=== PATIENT | female | born 1955 | race Caucasian/White ===

== ENCOUNTER → 2017-02-07 | Outpatient (CLI) | payer OTHER ==
[~2017-02-07] MED LIST: ALPR-385 PO; ANSHCS PR; CRAN500C2 PO; CYAN500T13 PO; ESCI1TAB9 PO; FERR325T5 PO; GLIM1TAB2 PO; LISI-461 PO; LPT/20 PO; OMEP20CA9 PO; POTA10TA79 PO; TRC145 PO
--- NOTE | 2017-02-07 12:38 | MAMMOGRAPHY REPORT ---
BILATERAL DIGITAL SCREENING MAMMOGRAM TOMOSYNTHESIS WITH CAD: 02/07/2017 CLINICAL HISTORY: Routine screening. TECHNIQUE: Breast tomosynthesis in addition to standard 2D mammography was performed. Current study was also evaluated with a Computer Aided Detection (CAD) system. COMPARISON: Comparison is made to exams dated: 02/06/2016 mammogram, 02/03/2015 mammogram, 02/01/2014 m ammogram, 11/25/2012 mammogram, 11/16/2011 mammogram, and 11/13/2010 mammogram - [facility]ter. BREAST COMPOSITION: There are scattered areas of fibroglandular density in both breasts. FINDINGS: No suspicious masses, calcifications, or areas of architectural distortion are noted in ei ther breast. There has been no significant interval change compared to prior exams. IMPRESSION: ACR BI-RADS CATEGORY 1: NEGATIVE There is no mammographic evidence of malignancy. A 1 year screening mammogram is recommended. The pa tient will receive written notification of the results. Approximately 10% of breast cancers are not detected with mammography. A negative mammographic report should not delay biopsy if a clinically suggestive mass is present. Madhavi Thayer M.D. ah/:02/07/2017 08:00:12 Global Process Owner: Hansel BARR(Erlin)(M), [facility] letter sent: Normal 1/2 BI-RADS Code: ACR BI-RADS Category 1: Negative
== END | disposition home or self-care (01) ==
LOC: C.MAMM 07:35
PROVIDERS: ATTEND Internal Medicine
DX: Z12.31 Encounter for screening mammogram for malignant neoplasm of breast (principal)

== ENCOUNTER → 2017-04-08 | Outpatient (CLI) | payer OTHER ==
[2017-04-08 09:59] LABS: ESTIMATED AVERAGE GLUCOSE 140 mg/dl; HA1C FLAG Normal (Normal)
[2017-04-08 10:18] LABS: BLOOD UREA NITROGEN 19 mg/dl (7-18); BUN/CREATININE RATIO 17.2 (10-20); CARBON DIOXIDE 27 mmol/L (21-32); CHLORIDE 102 mmol/L (98-107); CREATININE 1.08 mg/dl (0.60-1.20); GLUCOSE 119 mg/dl (70-99); SODIUM 138 mmol/L (136-145)
[2017-04-08 10:24] LABS: ALB/GLOB RATIO 1.1 (0.9-2); ALKALINE PHOSPHATASE 47 U/L (45-117); ALT/SGPT 21 U/L (12-78); AST/SGOT 13 U/L (15-37); CHOLESTEROL 132 mg/dl (0-200); CHOLESTEROL/HDL RATIO 4.1; HDL CHOLESTEROL 32 mg/dl; LDL CHOLESTEROL CALCULATED 45 mg/dl; PHOSPHORUS 3.1 mg/dl (2.5-4.9); TRIGLYCERIDES 277 mg/dl (0-150); VERY LOW DENSITY LIPOPROT CALC 55 mg/dl
== END | disposition home or self-care (01) ==
LOC: C.LAB 06:38
PROVIDERS: ATTEND Internal Medicine
DX: E11.9 Type 2 diabetes mellitus without complications (principal); E78.5 Hyperlipidemia, unspecified; I10 Essential (primary) hypertension

== ENCOUNTER → 2017-05-22 | Outpatient (CLI) | payer OTHER ==
[~2017-05-22] MED LIST changes: +ASPI81TA28 PO; +ATOR-24 PO; +ESCI1TAB10 PO; +GLC/500 PO; +GLIM2TAB2 PO; -LPT/20 PO; +LPT20 PO; +NUTRTAB40 PO; +OMEG10007 PO
[2017-05-22 09:57] LABS: BLOOD UREA NITROGEN 21 mg/dl (7-18); CREATININE 1.32 mg/dl (0.60-1.20)
== END | disposition home or self-care (01) ==
LOC: C.LAB 06:39
PROVIDERS: ATTEND Physician Assistant
DX: H90.3 Sensorineural hearing loss, bilateral (principal)

== ENCOUNTER → 2017-05-24 | Outpatient (CLI) | payer OTHER ==
[~2017-05-24] MED LIST changes: +GADAVIST IV PRN
--- NOTE | 2017-05-24 18:12 | DIAGNOSTIC IMAGING REPORT ---
BRAIN COMBO FOR IAC CLINICAL HISTORY: Left greater than right asymmetric sensorineural hearing loss. COMPARISON STUDY: Head CT June 27, 2009. TECHNIQUE: Utilizing a 1.5 Isis magnet, multiplanar, multi echo imaging of the brain was performed pre and postcontrast administration within 10 imaging through the internal auditory canals. Injection of 8.5 cc of Gadavist IV was uneventful. FINDINGS: There are no foci of restricted diffusion to suggest acute infarct. No acute intracranial hemorrhage, midline shift or mass effect is present. Brain volume is normal for age. Ventricular system is normal. Basilar cisterns are patent. There are no extra-axial collections. Flow-voids for the major intracranial vessels are present. There is no mass or abnormal enhancement within the bilateral internal auditory canals. There is no fluid within the mastoid air cells. Semicircular canals are intact. Extensive white matter T2 hyperintense foci are noted. This corresponds to white matter hypodensity shown on head CT of June 2009. Orbits are unremarkable. Sinuses are clear. No suspicious calvarial lesions are identified. IMPRESSION: 1. No acute intracranial findings. 2. No abnormalities within the internal auditory canals. 3. Extensive white matter T2 hyperintense foci which are nonspecific but likely reflect small vessel disease. Electronically signed by: Johnathon Jarvis M.D. 05/24/2017 6:10 PM Dictated Date/Time: 05/24/2017 6:05 PM
== END | disposition home or self-care (01) ==
LOC: C.MRI 16:47
PROVIDERS: ATTEND Physician Assistant
DX: H90.3 Sensorineural hearing loss, bilateral (principal)

== ENCOUNTER 2018-01-14 08:19 | Emergency (ER) | payer OTHER ==
[~2018-01-14] VITALS: Ht 160 cm; Wt 89.6 kg
[~2018-01-14 08:19] MED LIST changes: -ASPI81TA28 PO; -ATOR-24 PO; -ESCI1TAB10 PO; -GADAVIST IV PRN; -GLC/500 PO; -GLIM2TAB2 PO; -NUTRTAB40 PO; -OMEG10007 PO
[2018-01-14 08:26] VITALS: TEMP 36.9; Ht 160 cm; Wt 89.6 kg
--- NOTE | 2018-01-14 08:54 | DIAGNOSTIC IMAGING REPORT ---
R HAND MIN 3 VIEWS ROUTINE CLINICAL HISTORY: R hand crush injury trauma COMPARISON: None. DISCUSSION: Generalized degenerative change of the osseous structures throughout. No well-defined acute bony abnormality. No evidence for fracture or dislocation. Mild soft tissue edema or sulcal to the distal aspect of the metacarpals. IMPRESSION: 1. No acute bony abnormality. 2. Soft tissue edema. 3. Degenerative change. The above report was generated using voice recognition software. It may contain grammatical, syntax or spelling errors. Electronically signed by: Jamel Vera M.D. 01/14/2018 8:53 AM Dictated Date/Time: 01/14/2018 8:52 AM
[2018-01-14] MEDS ORDERED: NUTRTAB40 PO (09:36)
[2018-01-14] MEDS ORDERED: ASPI81TA28 PO (09:36)
[2018-01-14] MEDS ORDERED: OMEG10007 PO (09:36)
[2018-01-14] MEDS ORDERED: GLIM2TAB2 PO (09:36)
[2018-01-14] MEDS ORDERED: ATOR-24 PO (09:36)
[2018-01-14] MEDS ORDERED: ESCI1TAB10 PO (09:36)
[2018-01-14] MEDS ORDERED: GLC/500 PO (09:36)
--- NOTE | 2018-01-14 10:20 | EMERGENCY ROOM VISIT NOTE ---
History First contact with patient: 08:31 Chief Complaint: HAND PAIN/INJURY Stated Complaint: RIGHT WRIST INJURY History of Present Illness The patient is a 62 year old female, [employer] employee who presents to the Emergency Room with complaints of an injury to her right hand. The patient reports that she was removing gallardo from a refrigerator storage unit when the cart pinched her hand. The patient reports immediate developing bruise on the back of the hand, as well as pain across the knuckles. She denies any paresthesias or numbness of the hand or fingers. The patient is right-hand dominant, and rates her discomfort a 4 out of 10. Review of Systems 10 system review was performed and was negative except for pertinent positives and negatives as indicated in history of present illness Past Medical/Surgical History Medical Problems: (1) CKD (chronic kidney disease) stage 3, GFR 30-59 ml/min (2) Diabetes (3) Dyslipidemia (4) HTN (hypertension) (5) Internal hemorrhoids (6) Panic disorder Surgical Problems: (1) History of arthroscopy of knee (2) History of cholecystectomy (3) History of hysterectomy Family History Diabetes mellitus Hypertension Social History Smoking Status: Never Smoker Alcohol Use: none Drug Use: none Marital Status: single Occupation Status: employed Current/Historical Medications Scheduled Alprazolam (Xanax), 1 MG PO QAM Aspirin (Aspirin Ec), 81 MG PO QAM Atorvastatin (Lipitor), 40 MG PO HS Cranberry (Vaccinium Macrocarp (Cranberry), 1 CAP PO DAILY Escitalopram Oxalate (Lexapro), 20 MG PO HS Fenofibrate (Fenofibrate), 145 MG PO QAM Fish Oil ([place]utland-3), 1 CAP PO DAILY Glimepiride (Glimepiride), 2 MG PO QAM Lisinopril (Lisinopril), 10 MG PO DAILY Metformin Hcl (Glucophage), 500 MG PO BIDM Nutritional Supplements (Estroven), 1 TAB PO DAILY Omeprazole (Prilosec), 20 MG PO DAILY Potassium Chloride Microencaps (Potassium Chloride Cr), 10 MEQ PO DAILY Physical Exam Vital Signs Date Time Temp Pulse Resp B/P (MAP) Pulse Ox O2 Delivery O2 Flow Rate FiO2 01/14/18 08:26 36.9 72 16 160/69 97 Room Air Physical Exam CONSTITUTIONAL: Healthy and well nourished. Alert and oriented X 3 with positive affect. HEENT: Normocephalic, atraumatic. Pupils equal, round and reactive. NECK: Full active range of motion without discomfort. MUSCULOSKELETAL: Examination of the right hand shows a size dorsal hematoma. She has mildly worsened discomfort with flexion and extension of the fingers. The patient has no tenderness to palpation of the phalanges or wrist region. Capillary refill is less than 2 seconds. INTEGUMENTARY: No rash or other significant dermatologic conditions noted. NEUROLOGIC: Right hand and fingers are sensory intact. Medical Decision & Procedures ER Provider Diagnostic Interpretation: My interpretation of right hand x-rays does not show any acute fractures or dislocations. Radiologist report is as follows: R HAND MIN 3 VIEWS ROUTINE CLINICAL HISTORY: R hand crush injury trauma COMPARISON: None. DISCUSSION: Generalized degenerative change of the osseous structures throughout. No well-defined acute bony abnormality. No evidence for fracture or dislocation. Mild soft tissue edema or sulcal to the distal aspect of the metacarpals. IMPRESSION: 1. No acute bony abnormality. ED Course Patient history and physical exam were performed. Nurse's notes were reviewed. Vital signs were reviewed. The patient has an ice pack with her. She refused any analgesics. X-rays of the right hand were normal. The patient was provided another ice pack, and encouraged to intermittently apply ice and elevate the hand for swelling. She was given instructions for range of motion exercises of the fingers to prevent stiffness. Ibuprofen and Tylenol as needed for additional pain relief. She was encouraged to follow-up with Employee Health as needed for further pain management. The patient was happy with plan of care, voiced understanding of all discharge instructions, and rated her discomfort a 3 out of 10 at the time of discharge. Medical Decision Medication Reconcilliation Current Medication List: was personally reviewed by oh Blood Pressure Screening Patient's blood pressure: Normal blood pressure Impression Primary Impression: Traumatic hematoma of right hand Additional Impression: Work related injury Departure Information Referrals Jessica Hollingsworth M.D. (PCP) Patient Instructions My [facility] Problem Qualifiers Primary Impression: Traumatic hematoma of right hand Encounter type: initial encounter Qualified Codes: S60.221A - Contusion of right hand, initial encounter
[2018-01-14 10:32] VITALS: BP 149/81; PULSE 59; O2SAT 96
== END 2018-01-14 10:32 | disposition home or self-care (01) ==
LOC: C.EDB 08:19
DX: S60.221A Contusion of right hand, initial encounter (principal); W23.0XXA Caught, crushed, jammed, or pinched between moving objects, initial encounter; Y99.0 Civilian activity done for income or pay; I12.9 Hypertensive chronic kidney disease with stage 1 through stage 4 chronic kidney disease, or unspecified chronic kidney disease; E11.22 Type 2 diabetes mellitus with diabetic chronic kidney disease; N18.3 Chronic kidney disease, stage 3 (moderate); E78.5 Hyperlipidemia, unspecified; F41.0 Panic disorder [episodic paroxysmal anxiety]; Z79.82 Long term (current) use of aspirin; Z79.84 Long term (current) use of oral hypoglycemic drugs; Z79.899 Other long term (current) drug therapy

== ENCOUNTER 2021-12-18 07:13 | Inpatient (IN) ==
--- NOTE | 2021-11-29 11:23 | PAT Medication Instructions ---
Medication Instructions Date of Service November 29, 2021 Home Medications alprazolam 1 mg tablet 1 mg PO QAM aspirin 81 mg tablet,delayed release 81 mg PO QAM atorvastatin 40 mg tablet 40 mg PO HS escitalopram oxalate 20 mg tablet 20 mg PO HS fenofibrate nanocrystallized 145 mg tablet 145 mg PO QAM glimepiride 4 mg tablet 4 mg PO QAM linagliptin 5 mg tablet (Tradjenta) 5 mg PO HS lisinopril 10 mg tablet 10 mg PO QAM omega 4-tsv-euf-fish oil 1,000 mg (120 mg-180 mg) capsule (Fish Oil) 1 cap PO HS omeprazole 20 mg tablet,delayed release 20 mg PO QAM potassium chloride 10 mEq tablet,extended release 10 meq PO HS soy isoflavone-black cohosh root-magnolia bark 155 mg capsule (Estroven) 1 cap PO HS cholecalciferol (vitamin D3) 25 mcg (1,000 unit) tablet 25 mcg PO HS cyanocobalamin (vitamin B-12) 500 mcg tablet (Vitamin B-12) 500 mcg PO HS gabapentin 300 mg tablet 300 mg PO UD metformin 1,000 mg tablet 1,000 mg PO BID multivit with wdifawxa-vqhi-YI-lutein 8 mg iron-400 mcg-300 mcg tablet (Centrum Silver Women) 1 tab PO QAM Continue as directed gabapentin 300 mg tablet 300 mg PO UD ASK your prescriber and surgeon aspirin 81 mg tablet,delayed release 81 mg PO QAM STOP taking 2 weeks before surgery omega 1-nss-lpe-fish oil 1,000 mg (120 mg-180 mg) capsule (Fish Oil) 1 cap PO HS soy isoflavone-black cohosh root-magnolia bark 155 mg capsule (Estroven) 1 cap PO HS STOP taking 48 hours before surgery fenofibrate nanocrystallized 145 mg tablet 145 mg PO QAM DO NOT take the morning of surgery glimepiride 4 mg tablet 4 mg PO QAM lisinopril 10 mg tablet 10 mg PO QAM metformin 1,000 mg tablet 1,000 mg PO BID multivit with hovoocqc-bffy-DP-lutein 8 mg iron-400 mcg-300 mcg tablet (Centrum Silver Women) 1 tab PO QAM Take morning of surgery With a small sip of water, OTHERWISE NOTHING TO EAT OR DRINK AFTER MIDNIGHT: alprazolam 1 mg tablet 1 mg PO QAM omeprazole 20 mg tablet,delayed release 20 mg PO QAM Take evening before surgery atorvastatin 40 mg tablet 40 mg PO HS escitalopram oxalate 20 mg tablet 20 mg PO HS linagliptin 5 mg tablet (Tradjenta) 5 mg PO HS potassium chloride 10 mEq tablet,extended release 10 meq PO HS cholecalciferol (vitamin D3) 25 mcg (1,000 unit) tablet 25 mcg PO HS cyanocobalamin (vitamin B-12) 500 mcg tablet (Vitamin B-12) 500 mcg PO HS metformin 1,000 mg tablet 1,000 mg PO BID Other Notes If you have any questions please call us at [phone] or [phone] or [phone] or [phone]
--- NOTE | 2021-12-04 13:01 | Anesthesiology Consultation ---
Date of Service December 04, 2021 Assessment & Plan (1) Encounter for pre-operative examination: - ER 11/09/21 [facility]: "...worsening pain and paresthesias to her entire left lower extremity over the past 2 months which has since radiated into her left lower back over the past 2 weeks...degenerative findings on the patient's previous lumbar x-rays with development of pain to her lower back and continued pain/paresthesias to her left lower extremity with some developing weakness...MRI was obtained...multilevel discogenic degeneration with spondylitic spurring and facet arthrosis resulting in multilevel central canal stenosis, severe at L4-5 and L5-S1. There is also multilevel neural foraminal narrowing...findings are not concerning for cauda equina or need for emergent intervention at this point...improvement while on prednisone last month, she will be prescribed an additional course at this time..." Pt states doing better since ER visit, remaining in communication with surgeon's office. - COVID screening: Per assessment on 12/04/2021: Travel screen negative, no known COVID-19 positive contacts or current COVID-19 related symptoms in past 2 weeks. Pt vaccinated. Surgeon arranging preop COVID testing, scheduled 12/14/2021. Awaiting results. Chart Review Chart Review: Acceptable Risk for Surgery and Patient seen in Pre Admission Testing Teaching & Discussion Pre-Anesthesia Teaching/Discussion Notes: Instructed NPO after midnight before surgery, except medications with 15 cc of water. Medication instructions provided according to the PAT guidelines. History Surgery Operation Date: 12/18/21 11:25 Proposed Procedures p L4-S1 Decompression and Fusion, Spinal Cord Monitoring - Jose Eduardo Danielle DO Height/Weight Height: 5 ft 3 in Weight: 82 kg Allergies Allergy/AdvReac Type Severity Reaction Status Date / Time atorvastatin Allergy Unknown Swelling Verified 11/24/21 11:47 of Lip/Tongue/Throat sertraline Allergy Unknown Swelling Verified 11/24/21 11:47 of Lip/Tongue/Throat Sulfa (Sulfonamide Allergy Unknown Swelling Verified 11/24/21 11:47 Antibiotics) of Lip/Tongue/Throat Medications Home Medications Medication Instructions Recorded Confirmed Last Taken alprazolam 1 mg tablet 1 mg PO QAM 05/07/19 11/24/21 05/20/19 11:00 aspirin 81 mg tablet,delayed 81 mg PO QAM 05/07/19 11/24/21 05/14/19 05:30 release atorvastatin 40 mg tablet 40 mg PO 05/07/19 11/24/21 05/20/19 20:00 escitalopram oxalate 20 mg tablet 20 mg PO 05/07/19 11/24/21 05/20/19 20:00 fenofibrate nanocrystallized 145 145 mg PO QA 05/07/19 11/24/21 05/20/19 11:00 mg tablet glimepiride 4 mg tablet 4 mg PO QAM 05/07/19 11/24/21 05/20/19 11:00 linagliptin 5 mg tablet (Tradjenta) 5 mg PO 05/07/19 11/24/21 05/20/19 11:00 lisinopril 10 mg tablet 10 mg PO QA 05/07/19 11/24/21 05/20/19 11:00 omega 0-yvq-qme-fish oil 1,000 mg 1 cap PO 05/07/19 11/24/21 05/14/19 05:30 (120 mg-180 mg) capsule (Fish Oil) omeprazole 20 mg tablet,delayed 20 mg PO QA 05/07/19 11/24/21 05/20/19 11:00 release potassium chloride 10 mEq 10 meq PO 05/07/19 11/24/21 05/20/19 20:00 tablet,extended release soy isoflavone-black cohosh 1 cap PO 05/07/19 11/24/21 05/14/19 20:00 root-magnolia bark 155 mg capsule (Estroven) cholecalciferol (vitamin D3) 25 25 mcg PO HS 11/24/21 11/24/21 Unknown mcg (1,000 unit) tablet cyanocobalamin (vitamin B-12) 500 500 mcg PO HS 11/24/21 11/24/21 Unknown mcg tablet (Vitamin B-12) gabapentin 300 mg tablet 300 mg PO UD 11/24/21 11/24/21 Unknown metformin 1,000 mg tablet 1,000 mg PO BID 11/24/21 11/24/21 Unknown multivit with 1 tab PO QAM 11/24/21 11/24/21 Unknown nrynaxlu-ahij-JK-lutein 8 mg iron-400 mcg-300 mcg tablet (Centrum Silver Women) Past Medical History Medical History (Updated 12/04/21 @ 13:09 by Galina Ho PA-C) Anxiety Depression DM type 2 (diabetes mellitus, type 2) NIDDM GERD (gastroesophageal reflux disease) controlled, stable per pt Hyperlipidemia Hypertension controlled, stable per pt Patient denies h/o stroke, seizures, heart attack, heart failure, blood clots or blood transfusions. Exercise / Class Metabolic Activity II 4-5 Yardwork/Stairs/Walk up hill (denies CP or SOB with 1 FOS) Past Family History Family History Sister Family history of diabetes mellitus Throat cancer Sister No problems noted. Past Surgical History Surgical History History of arthroscopy of right knee History of arthroscopy of right shoulder 05/21/19: LMA#4. History of carpal tunnel release of both wrists History of cholecystectomy History of colonoscopy History of oophorectomy, unilateral Rt. History of partial hysterectomy Nausea and vomiting after administration of anesthetic agent Past Anesthesia History No Family Hx of Anesthesia Complications and Other (pt states occasionally has reaction of saying things she otherwise wouldn't say post-op, denies combative/belligerent behavior) History of PONV No Hx of Motion Sickness and History of PONV (occ-denies needing scop patch) Social History Smoking Status: Former smoker tobacco type: cigarettes Do You Dip or Chew Tobacco: No Smoking End Date: "only smoked as a teenager" Hx Alcohol Use: Yes Alcohol type: wine alcohol intake frequency: holidays/special occasions only Hx Substance Use: No substance use type: does not use Review of Systems Snoring, denies witnessed apneas. Occasional nonproductive cough, denies change or worsening. Patient denies chest pain, shortness of breath, dyspnea on exertion, wheezing, or palpitations. Physical Exam Vital Signs Vitals BP 135/80 P 75 TEMP 98.5 SP02 97% on RA RESP 17 Physical Full cervical extension range of motion without pain TMD 3.5 finger breaths Mallampati Score 2 Dentition: intact, denies chipped or loose teeth, caps/crowns, implants or bridges Lungs: normal respiratory effort. Clear throughout to auscultation, no adventitious breath sounds Cardiac: regular rate and rhythm, no murmurs noted Carotid arteries: negative bruit bilat Lab Results Anesthesia Preop Results Results Anesthesia Widget: WBC 5.20 K/ul (4.8-10.8) 12/04/21 Hgb 11.6 g/dl (12.0-16.0) L 12/04/21 Hct 34.9 % (34.1-44.9) 12/04/21 Plt 238 K/uL (130-400) 12/04/21 Na 137 mmol/L (136-145) 12/04/21 K 3.6 mmol/L (3.5-5.1) 12/04/21 Cl 102 mmol/L (98-107) 12/04/21 CO2 28 mmol/L (21-32) 12/04/21 BUN 18 mg/dl (6-23) 12/04/21 Creat 1.06 mg/dl (0.6-1.2) 12/04/21 Glucose Level 177 mg/dl (70-99(Fasting)) H 12/04/21 PT 10.6 Seconds (9.0-12.0) 12/04/21 PTT 24.2 Seconds (21.0-31.0) 12/04/21 INR 1.0 (0.9-1.1) 12/04/21 HA1c 6.5 % (4.5-5.6) H 12/04/21 Urine Color Yellow 12/04/21 Urine Appearance Clear (Clear) 12/04/21 Urine pH 5.0 (4.5-7.5) 12/04/21 Urine Specific [place] 1.009 (1.000-1.030) 12/04/21 Urine Protein Negative (Negative) 12/04/21 Urine Glucose (UA) Negative (Negative) 12/04/21 Urine Ketones Negative (Negative) 12/04/21 Urine Blood Negative (Negative) 12/04/21 Urine Nitrite Negative (Negative) 12/04/21 Urine Bilirubin Negative (Negative) 12/04/21 Urine Urobilinogen Negative (Negative) 12/04/21 Urine Leukocyte Esterase Negative (Negative) 12/04/21 Blood Type A Positive 12/04/21 Antibody Screen NEGATIVE 12/04/21 Testing Electrocardiogram Date: 12/04/21 NSR, rate 68 bpm Chest X-Ray Date: 12/04/21 No lines and tubes are seen. Calcified aortic knob is seen. Calcified granulomata are seen in the left lung. These are unchanged from prior exam. No evidence of pleural effusion or pneumothorax. IMPRESSION: No acute chest disease. Other Testing Venous doppler study 10/03/21 No evidence of deep venous thrombus.
[~2021-12-18 07:13] MED LIST changes: +ACETAMINOPHEN 500 MG TAB PO SCH; -ALPR-385 PO; -ANSHCS PR; -CRAN500C2 PO; -CYAN500T13 PO; +CeleBREX 200 MG CAP PO SCH; -ESCI1TAB9 PO; -FERR325T5 PO; +GABAPENTIN 300 MG CAP PO SCH; -GLIM1TAB2 PO; -LISI-461 PO; -LPT20 PO; +LR 15ML/HR IV SCH; -OMEP20CA9 PO; -POTA10TA79 PO; +ROCURONIUM BROMIDE 10 MG/ML 5 ML VIAL IV ONE; -TRC145 PO; +ceFAZolin 2000MG 2,000 MG/15 ML SYR IV SCH
[2021-12-18] MEDS ORDERED: MIDAZOLAM HCL 1 MG/ML 2ML VIAL ONE (10:35)
[2021-12-18] MEDS ORDERED: fentaNYL citrate 100 MCG/2 ML VIAL ONE ×2 (10:35)
[2021-12-18] MEDS ORDERED: PROPOFOL IV EMULSION 10 MG/ML 20 ML VIAL IV ONE (11:32)
[2021-12-18] MEDS ORDERED: LIDOCAINE 2% MPF LOCAL 5 ML VIAL INFIL ONE (11:32)
[2021-12-18] MEDS ORDERED: ONDANSETRON INJ 2 MG/ML 2 ML VIAL ONE ×2 (11:32→13:03)
[2021-12-18] MEDS ORDERED: DEXAMETHASONE SOD INJ 4 MG/ML VIAL ONE (11:33)
[2021-12-18] MEDS ORDERED: ATROPINE SULFATE 0.1 MG/ML 10ML SYR IV PRN (11:43)
[2021-12-18] MEDS ORDERED: ONDANSETRON INJ 2 MG/ML 2 ML VIAL IV PRN ×2 (11:43→15:54)
[2021-12-18] MEDS ORDERED: PROMETHAZINE HCL 6.25 MG in SODIUM CHLORIDE 0.9% 50 ML IV PRN (11:43)
--- NOTE | 2021-12-18 11:49 | History & Physical Bridge Note ---
Date of Service December 18, 2021 History & Physical Bridge Note I have examined the patient, reviewed the History & Physical and in the interval since the performance of the History & Physical I have noted the following changes of clinical significance: no changes noted
--- NOTE | 2021-12-18 11:50 | History & Physical Report ---
Date of Service December 18, 2021 Assessment & Plan (1) Neurogenic claudication due to lumbar spinal stenosis: Plan: L4-S1 decompression and fusion History of Present Illness Chief Complaint: Back and leg pain Primary Care Provider: Jessica Hollingsworth MD This is a 66-year-old female who presents with chronic persistent back and leg pain. After an extensive course of nonoperative care she is here for surgical invention. Allergies Allergy/AdvReac Type Severity Reaction Status Date / Time atorvastatin Allergy Unknown Swelling Verified 12/18/21 07:47 of Lip/Tongue/Throat sertraline Allergy Unknown Swelling Verified 12/18/21 07:47 of Lip/Tongue/Throat Sulfa (Sulfonamide Allergy Unknown Swelling Verified 12/18/21 07:47 Antibiotics) of Lip/Tongue/Throat Home Medications Medication Instructions Recorded Confirmed Type alprazolam 1 mg tablet 1 mg PO QAM 05/07/19 12/18/21 History aspirin 81 mg tablet,delayed 81 mg PO QAM 05/07/19 12/18/21 History release atorvastatin 40 mg tablet 40 mg PO HS 05/07/19 12/18/21 History escitalopram oxalate 20 mg tablet 20 mg PO HS 05/07/19 12/18/21 History fenofibrate nanocrystallized 145 145 mg PO QAM 05/07/19 12/18/21 History mg tablet glimepiride 4 mg tablet 4 mg PO QAM 05/07/19 12/18/21 History linagliptin 5 mg tablet (Tradjenta) 5 mg PO HS 05/07/19 12/18/21 History lisinopril 10 mg tablet 10 mg PO QAM 05/07/19 12/18/21 History omega 6-awn-don-fish oil 1,000 mg 1 cap PO HS 05/07/19 12/18/21 History (120 mg-180 mg) capsule (Fish Oil) omeprazole 20 mg tablet,delayed 20 mg PO QAM 05/07/19 12/18/21 History release potassium chloride 10 mEq 10 meq PO HS 05/07/19 12/18/21 History tablet,extended release soy isoflavone-black cohosh 1 cap PO HS 05/07/19 12/18/21 History root-magnolia bark 155 mg capsule (Estroven) cholecalciferol (vitamin D3) 25 25 mcg PO HS 11/24/21 12/18/21 History mcg (1,000 unit) tablet cyanocobalamin (vitamin B-12) 500 500 mcg PO HS 11/24/21 12/18/21 History mcg tablet (Vitamin B-12) gabapentin 300 mg tablet 300 mg PO UD 11/24/21 12/18/21 History metformin 1,000 mg tablet 1,000 mg PO BID 11/24/21 12/18/21 History multivit with 1 tab PO QAM 11/24/21 12/18/21 History cyelsxhz-line-EZ-lutein 8 mg iron-400 mcg-300 mcg tablet (Centrum Silver Women) Past Med/Surg History Medical History (Updated 12/18/21 @ 11:50 by Jose Eduardo Danielle DO) Anxiety Depression DM type 2 (diabetes mellitus, type 2) NIDDM GERD (gastroesophageal reflux disease) controlled, stable per pt Hyperlipidemia Hypertension controlled, stable per pt Surgical History History of arthroscopy of right knee History of arthroscopy of right shoulder 05/21/19: LMA#4. History of carpal tunnel release of both wrists History of cholecystectomy History of colonoscopy History of oophorectomy, unilateral Rt. History of partial hysterectomy Nausea and vomiting after administration of anesthetic agent Family History Sister Family history of diabetes mellitus Throat cancer Sister No problems noted. Social History Smoking Status: Never smoker Tobacco Type: Cigarettes Smoking End Date: "only smoked as a teenager"; Second Hand Exposure: Yes; Do You Dip or Chew Tobacco: No; Tobacco Cessation Education Requested by Patient: No Hx Alcohol Use: Yes Alcohol type: wine Hx Substance Use: No Preferred Language: Guinean Communication Ability: Effective Visual Impairment: No Limitations Staff Nurse [employer] Resource Team Required: No Beliefs That Will Affect Care: None Current Living Situation: Alone Other Information That Helps Us Care for You: No Feels Safe at Home: Yes Safety Concerns: Feels Safe At This Time Assistive Devices: Glasses Physical Exam Physical Exam: Patient is alert and oriented Heart regular rhythm Lungs clear Results & Data Results & Data ([facility]) Vital Signs (Past 12 Hours) Vital Signs Temp Pulse Resp BP Pulse Ox O2 Del Method 12/18/21 08:05 36.8 C 69 16 153/73 H 98 Room Air
[2021-12-18] MEDS ORDERED: ceFAZolin 330 MG/ML 1 GM VIAL ONE (12:11)
[2021-12-18] MEDS ORDERED: SCOPOLAMINE 1 MG TDSY TD ONE (12:11)
[2021-12-18] MEDS ORDERED: BUPIVACAINE/EPINEPHRINE 0.25% 1:200,000 30 ML VIAL ONE (12:11)
[2021-12-18] MEDS ORDERED: METOCLOPRAMIDE HCL INJ 5 MG/ML 2 ML VIAL ONE (12:59)
[2021-12-18] MEDS ORDERED: NEOSTIGMINE METHYLSULFATE 1 MG/ML 10ML VIAL ONE (13:00)
[2021-12-18] MEDS ORDERED: GLYCOPYRROLATE 0.2 MG/ML VIAL ONE ×2 (13:00→14:18)
[2021-12-18] MEDS ORDERED: ePHEDrine sulfate 50 MG/ML AMP ONE (13:03)
[2021-12-18] MEDS ORDERED: WATER, STERILE FOR INJ 10 ML VIAL ONE (13:03)
[2021-12-18] MEDS ORDERED: FLOSEAL HEMOSTATIC MATRIX 10ML TOP ONE (13:38)
--- NOTE | 2021-12-18 14:24 | Operative Report ---
Post Operative Report Pre & Post Diagnosis Operation Date: 12/18/21 09:05 Pre-Op Diagnosis: Spinal Stenosis Lumbar Region with Radiculopathy Far lateral disc herniation L4-5 on the left Post-Op Diagnosis: Same I identified the patient and participated in the time-out.: Yes Procedure Operation Date: 12/18/21 09:05 Actual Procedures #1 lumbar decompression with bilateral medial facetectomies and foraminotomies L3-L4, L4-5 and L5-S1. #2 posterior spinal fusion L4-L5 L5-S1. #3 placement posterior instrumentation L4-L5 L5-S1. #4 interbody fusion L4-L5 L5-S1. #5 placement of Spira 13 x 26 mm cage at L4-L5 L5-S1 for #6 placement locally harvested morselized autograft in the posterior gutters. #7 placement of I factor model V toss interbody space and posterior lateral gutters. Surgeon Jose Eduardo Danielle, Scrap Carrier Leslye Boudreaux Estimated Blood Loss 250 Findings See Below The patient is 5 foot 3 inches tall weighing over 80 kg with a BMI greater than 31. Patient's body habitus did contribute to significant technical difficulty required deeper retractors longer instruments in order to perform procedure. This at least 50% increased operative time. Specimens None Indications This is a 66-year-old female who presents with above-mentioned diagnosis of failed course of nonoperative care she is here for surgical invention. Description of Procedure Patient met with identified informed consent obtained. Patient was then taken to the operative suite underwent intubation placed in a prone position on the Jonathan table atop the Jl frame. All bony prominences well-padded eyes inspected to ensure no external pressure placed upon them. This point lumbar spine was prepped and draped in normal sterile fashion. Sharp dissection with assistance of Bovie cautery was performed down to and exposing the lamina and transverse processes of L4-L5 and sacral ala bilaterally. From a caudal cephalad fashion complete laminectomy L5 L4 and partial laminectomy L3 was performed including bilateral medial facetectomies and foraminotomies. This did include removal of a far lateral disc condition L4-5 on the left. After complete decompression pedicle screws were placed in L4-L5 and S1 levels bilaterally with assistance of fluoroscopy and appropriately sized young placed. By way of a transforaminal approach on the left complete discectomy of L5-S1 was performed endplates curetted to subcortical any bone and a 13 x 26 mm spiral cage filled with I factor tapped in position. Then proceeded to L4-L5 and again by way of a transforaminal portion left complete discectomy performed endplates curetted to subcortical bleeding bone and again a 13 x 26 mm spiral cage filled with I factor tapped in position. The rods were then locked into final position bilaterally. The transverse processes of L4-L5 and sacral ala burred to subcortical bleeding bone. I factor combined with V toss and locally harvested morselized autograft was placed in the posterior gutters. 15 round PATRICE drain inserted. The incision was then closed with 1 Vicryl the fascia 2-0 Vicryl subcutaneously and 4 Monocryl for final skin closure. Steri-Strip sterile dressings placed. Patient waken taken PACU stable condition. Please note spinal cord monitoring was utilized at the procedure no changes noted. Lastly Leslye Boudreaux was present at the entire procedure and while the patient positioning complex portions of the surgery and final skin closure. I attest to the content of the Intraoperative Record and any orders documented therein. Any exceptions are noted below.
--- NOTE | 2021-12-18 14:51 | Fluoroscopy Report ---
FL lumbar spine 2-3V CLINICAL HISTORY: L4-S1 DFI COMPARISON STUDY: None. FLUOROSCOPY TIME: 27 seconds. FINDINGS: 2 fluoroscopic spot images of the lumbar spine were submitted for review. There is posterio r decompression and fusion from L4 through S1 with pedicle screws and rods. Hardware appears intact. Disc spacers are in place. IMPRESSION: Fluoroscopic assistance provided for L4-S1 posterior decompression and fusion ACT 112: Negative or not required by law. Electronically signed by: Jimmie Vickers M.D. 12/18/2021 2:49 PM
[2021-12-18] MEDS: HYDROmorphone INJ 1 MG/ML SYRINGE IV PRN ×2 (15:04→15:10)
--- NOTE | 2021-12-18 15:28 | Anesthesiology Progress Note ---
Date of Service December 18, 2021 Anesthesia Post Procedure Vital Signs Vital Signs: Temp Pulse Pulse Resp BP BP Pulse Ox 12/18/21 15:10 84 18 157/85 H 94 12/18/21 15:00 83 20 157/82 H 94 12/18/21 15:20 86 20 158/77 H 93 12/18/21 14:50 92 H 16 162/85 H 94 12/18/21 14:47 36.6 C 95 H 14 182/90 H 95 12/18/21 08:05 36.8 C 69 16 153/73 H 98 O2 Del Method O2 Flow Rate 12/18/21 15:10 Nasal Cannula 2 12/18/21 15:00 Nasal Cannula 2 12/18/21 15:20 Nasal Cannula 2 12/18/21 14:50 Oxymask 6 12/18/21 14:47 Oxymask 6 12/18/21 08:05 Room Air Pain Intensity Lower Back: Pain Intensity: 2 Transfer of Care Handoff Completed per policy Notes Mental Status: alert / awake / arousable Patient Amnestic to Procedure: Yes Nausea / Vomiting: adequately controlled Pain: adequately controlled Airway Patency, RR, SpO2: stable & adequate BP & HR: stable & adequate Hydration State: stable & adequate Anesthetic Complications: no major complications apparent and Pt Satisfied with anesthetic care Notes: The patient is awake and comfortable. Her vital signs are stable.
[2021-12-18] MEDS ORDERED: SOD PHOSPHATE/SOD BIPHOSPHATE ENEMA 132 ML BTL PR PRN (15:54)
[2021-12-18] MEDS ORDERED: MAGNESIUM HYDROXIDE SUSP 30 ML UDC PO PRN (15:54)
[2021-12-18] MEDS ORDERED: hydrOXYzine HCl 25 MG TAB PO PRN (15:54)
[2021-12-18] MEDS ORDERED: FAMOTIDINE 20 MG TAB PO PRN (15:54)
[2021-12-18] MEDS ORDERED: HYDROmorphone INJ 0.5 MG/0.5 ML SYR IV PRN (15:54)
[2021-12-18] MEDS ORDERED: PHARMACY GLYCEMIC MGMT CONSULT PRN (15:54)
[2021-12-18] MEDS ORDERED: bisacodyL 10 MG SUPP PR PRN (15:54)
[2021-12-18] MEDS ORDERED: NALOXONE HCL 0.4 MG/1 ML VIAL/CARP IV PRN (15:54)
[2021-12-18] MEDS ORDERED: LORazepam 0.5 MG TAB PO PRN (15:54)
[2021-12-18] MEDS ORDERED: PROMETHAZINE HCL 12.5 MG in SODIUM CHLORIDE 0.9% 50 ML IV PRN (15:54)
[2021-12-18] MEDS ORDERED: ACETAMINOPHEN 500 MG TAB PO PRN (15:54)
[2021-12-18] MEDS ORDERED: METOCLOPRAMIDE HCL INJ 5 MG/ML 2 ML VIAL IV PRN (15:54)
[2021-12-18] MEDS ORDERED: ONDANSETRON 4 MG OD TAB PO PRN (15:54)
[2021-12-18] MEDS ORDERED: LORazepam 0.5 MG in SYRINGE 0.25 ML IV PRN (15:54)
[2021-12-18] MEDS ORDERED: HYDROmorphone INJ 1 MG/ML SYRINGE IV PRN (15:54)
[2021-12-18] MEDS ORDERED: ACETAMINOPHEN 1,000 MG/100 ML VIAL IV PRN (15:54)
[2021-12-18] MEDS ORDERED: ALUMINUM/MAGNESIUM SUSP 30 ML UDC PO PRN (15:54)
[2021-12-18] MEDS: SODIUM CHLORIDE 0.9% 1000ML 1,000 ML IV SCH (16:08)
--- NOTE | 2021-12-18 16:44 | Consultation ---
Date of Consultation December 18, 2021 Assessment & Plan (1) Neurogenic claudication due to lumbar spinal stenosis: (2) Diabetes: (3) Dyslipidemia: (4) HTN (hypertension): Plan Ms. Akilah Thomas is a 66 year old who is a patient of Dr. Danielle'edilia who underwent a scheduled L4-S1 decompression and fusion surgery today. We are involved for continued medical management. Neurogenic claudication due to lumbar spinal stenosis: -POD #0 -EBL: 250mL; PATRICE drain in place with bright red bloody output. -Baseline pre-op Hgb: 11.6; will recheck H/H in AM. -All wound, diet, anticoagulation, and pain management to be managed by Ortho. Diabetes: -Hold PO insulin agents (Metformin, Glimepiride, and Trajerta). Received Decadron post op. -Will order AC/HS checks; pre-op HA1C: 6.5 -Glycemic pharmacy to manage SSI. Dyslipidemia: -Takes Lipitor and Fenofibrate; continue HTN: -Post-op BP 144/82 in setting of uncontrolled pain. Educated patient on use of PRN pain meds -Takes Lisinopril; continue. Thank you kindly for involving the [facility] Hospitalist team with this individual. Please feel free to contact us 10/12 through [employer] on-call hospitalist. Supervising Physician Co-Signing Physician Notes Pt was seen an examined. Agreed with Ludmila GARCÍA exam, assessment and plan. 66 year old female with PMH of DM, Dyslipidemia, HTN failed consevative management for chronic back pain. S/P L4-S1 decompression and fusion surgery performed by Dr. Danielle.No postop complication. Continue pain management. Monitor H/H. Continue incentive spirometry. Fall precaution. MD Della History of Present Illness Requesting Physician: Dr. Danielle Reason for Consultation: medical management Attending Physician: Jose Eduardo Danielle DO History of Present Illness Ms. Akilah Thomas is a 66 year old who is a patient of Dr. Mendoza who had been experiencing chronic back and leg pain that was not responding to a conservative approach; therefore, she presented today for a scheduled L4-S1 decompression and fusion surgery for her neurogenic claudication of her lumbar and spinal region. Postoperatively, the hospitalist team was consulted for medical management. Additional PMH includes DM2, HTN, dyslipidemia, CKD3, Anxiety, OA, and had a cholecystectomy. Please see A/P for further details. Allergies Allergy/AdvReac Type Severity Reaction Status Date / Time atorvastatin Allergy Unknown Swelling Verified 12/18/21 07:47 of Lip/Tongue/Throat sertraline Allergy Unknown Swelling Verified 12/18/21 07:47 of Lip/Tongue/Throat Sulfa (Sulfonamide Allergy Unknown Swelling Verified 12/18/21 07:47 Antibiotics) of Lip/Tongue/Throat Home Medications Medication Instructions Recorded Confirmed Type alprazolam 1 mg tablet 1 mg PO QAM 05/07/19 12/18/21 History aspirin 81 mg tablet,delayed 81 mg PO QAM 05/07/19 12/18/21 History release atorvastatin 40 mg tablet 40 mg PO HS 05/07/19 12/18/21 History escitalopram oxalate 20 mg tablet 20 mg PO HS 05/07/19 12/18/21 History fenofibrate nanocrystallized 145 145 mg PO QAM 05/07/19 12/18/21 History mg tablet linagliptin 5 mg tablet (Tradjenta) 5 mg PO HS 05/07/19 12/18/21 History lisinopril 10 mg tablet 10 mg PO QAM 05/07/19 12/18/21 History omega 0-yjl-cwq-fish oil 1,000 mg 1 cap PO HS 05/07/19 12/18/21 History (120 mg-180 mg) capsule (Fish Oil) omeprazole 20 mg tablet,delayed 20 mg PO QAM 05/07/19 12/18/21 History release potassium chloride 10 mEq 10 meq PO HS 05/07/19 12/18/21 History tablet,extended release soy isoflavone-black cohosh 1 cap PO HS 05/07/19 12/18/21 History root-magnolia bark 155 mg capsule (Estroven) cholecalciferol (vitamin D3) 25 25 mcg PO HS 11/24/21 12/18/21 History mcg (1,000 unit) tablet cyanocobalamin (vitamin B-12) 500 500 mcg PO HS 11/24/21 12/18/21 History mcg tablet (Vitamin B-12) gabapentin 300 mg tablet 300 mg PO UD 11/24/21 12/18/21 History metformin 1,000 mg tablet 1,000 mg PO BID 11/24/21 12/18/21 History multivit with 1 tab PO QAM 11/24/21 12/18/21 History osyjemhs-qxai-SI-lutein 8 mg iron-400 mcg-300 mcg tablet (Centrum Silver Women) glipizide 10 mg tablet, extended 10 mg PO DAILYBB 12/19/21 12/19/21 History release 24 hr oxycodone 5 mg tablet 5 mg PO Q6H PRN pain, severe #30 12/19/21 Rx tabs tramadol 50 mg tablet 50 mg PO Q6H PRN pain, moderate 12/19/21 Rx #30 tabs Patient History Medical History Anxiety Depression DM type 2 (diabetes mellitus, type 2) NIDDM GERD (gastroesophageal reflux disease) controlled, stable per pt Hyperlipidemia Hypertension controlled, stable per pt Surgical History History of arthroscopy of right knee History of arthroscopy of right shoulder 05/21/19: LMA#4. History of carpal tunnel release of both wrists History of cholecystectomy History of colonoscopy History of oophorectomy, unilateral Rt. History of partial hysterectomy Nausea and vomiting after administration of anesthetic agent Family History Sister Family history of diabetes mellitus Throat cancer Sister No problems noted. Social History Smoking Status: Never smoker Tobacco Type: Cigarettes Smoking End Date: "only smoked as a teenager"; Second Hand Exposure: Yes; Do You Dip or Chew Tobacco: No; Tobacco Cessation Education Requested by Patient: No Hx Alcohol Use: Yes Alcohol type: wine Hx Substance Use: No Preferred Language: Dominican Communication Ability: Effective Visual Impairment: No Limitations Rougher Operator Required: No Beliefs That Will Affect Care: None Current Living Situation: Alone Other Information That Helps Us Care for You: No Feels Safe at Home: Yes Safety Concerns: Feels Safe At This Time Assistive Devices: None Review of Systems Review of Systems: Neuro: (-) Falls, trauma, slurred speech HEENT: (-) ZAVALA, dizziness, dysphagia, visual or auditory changes CV: (-) CP, palpitations, swelling Resp: (-) SOB GI: (-) appetite changes, N/V/D, bowel changes : (-) urinary changes Skin: (-) rashes Psych: (-) anxiety, depression Physical Exam Physical Exam: Neuro: AAOx4, PERRLA, no aphagia, memory changes, CNII-XII grossly intact HEENT: head normocephalic, moist mucus membranes CV: S1/S2, (-) M/G/R, (-) edema, cap refill < 3 seconds (+) PATRICE drain noted with bright red blood Resp: Lungs CTA in all leavitt. On RA GI: Abdomen S/NT/ND, Ax4 bowel sounds, (-) CVA tenderness Musculoskeletal: 5/5 B/L UE strength, 4/5 B/L LE strength. No gait disturbance Skin: (+) vertical incision with C/D/I dressing. (+) petechial spots on chest, not new , (-) erythema. Psych: euthymic mood Results & Data ([facility]) Vital Signs (Past 12 Hours) Vital Signs Temp Pulse Pulse Resp BP BP Pulse Ox 12/18/21 16:30 36.6 C 85 16 138/80 94 12/18/21 15:54 36.6 C 88 18 160/80 H 97 12/18/21 15:10 84 18 157/85 H 94 12/18/21 15:00 83 20 157/82 H 94 12/18/21 15:40 82 20 149/71 H 94 12/18/21 15:30 36.5 C 83 20 156/82 H 93 12/18/21 15:20 86 20 158/77 H 93 12/18/21 14:50 92 H 16 162/85 H 94 12/18/21 14:47 36.6 C 95 H 14 182/90 H 95 12/18/21 08:05 36.8 C 69 16 153/73 H 98 O2 Del Method O2 Flow Rate 12/18/21 16:30 Nasal Cannula 2 12/18/21 15:54 Nasal Cannula 2 12/18/21 15:10 Nasal Cannula 2 12/18/21 15:00 Nasal Cannula 2 12/18/21 15:40 Nasal Cannula 2 12/18/21 15:30 Nasal Cannula 2 12/18/21 15:20 Nasal Cannula 2 12/18/21 14:50 Oxymask 6 12/18/21 14:47 Oxymask 6 12/18/21 08:05 Room Air Diagnostic Findings Laboratory Results POC Glucose 127 mg/dl (70-99) H 12/18/21 14:50 SARS-CoV-2, RNA, NAAT NEGATIVE (NEGATIVE) 12/18/21 07:40 Blood Type A Positive 12/18/21 07:45 Antibody Screen NEGATIVE 12/18/21 07:45 Crossmatch See Detail 12/18/21 07:45 Impressions Lumbar Spine X-Ray 12/18/21 09:05 FL lumbar spine 2-3V CLINICAL HISTORY: L4-S1 DFI COMPARISON STUDY: None. FLUOROSCOPY TIME: 27 seconds. FINDINGS: 2 fluoroscopic spot images of the lumbar spine were submitted for review. There is posterior decompression and fusion from L4 through S1 with pedicle screws and rods. Hardware appears intact. Disc spacers are in place. IMPRESSION: Fluoroscopic assistance provided for L4-S1 posterior decompression and fusion ACT 112: Negative or not required by law. Electronically signed by: Jimmie Vickers M.D. 12/18/2021 2:49 PM ECG Additional Comments: Pre op EKG NSR: HR 68 CATHERINE 152 ms QRS: 58 QTc: 414
[2021-12-18] MEDS ORDERED: GABAPENTIN 300 MG CAP PO PRN (16:45)
[2021-12-18] MEDS ORDERED: GLUCOSE 10 TAB/TUBE PO PRN (17:20)
[2021-12-18] MEDS ORDERED: DEXTROSE 50% 50 ML SYRINGE IV PRN (17:20)
[2021-12-18] MEDS ORDERED: CARBOHYDRATES FOR HYPOGLYCEMIA PO PRN (17:20)
[2021-12-18] MEDS ORDERED: GLUCOSE 40% GEL 15 GM TUBE PO PRN (17:20)
[2021-12-18] MEDS ORDERED: GLUCAGON FOR INJ 1 MG VIAL SQ PRN (17:20)
[2021-12-18] MEDS ORDERED: LANTUS PER UNIT CHARGE SQ ONE (17:24)
[2021-12-18] MEDS: INSULIN ASPART PER UNIT SC SCH ×2 (17:32→21:08)
--- NOTE | 2021-12-18 17:59 | Pharmacy Report ---
Pharmacy Glycemic Short Note 2 - Date of Service December 18, 2021 - Glycemic Short BSG Results (Last 24 hours): 12/18/21 12/18/21 12/18/21 07:57 14:50 16:59 POC Glucose 126 H 127 H 182 H OUTPATIENT ANTIDIABETIC REGIMEN: * Metformin * Glimepiride * Linagliptin * HbA1c 6/5% on 12/04/21 ASSESSMENT: * 66 yo F with T2DM POD [address] Danielle - steroids overridden in OR and scheduled ongoing * Will utilize NPH as basal 2nd daily qAM dexamethasone w low initial dose as it's being admin in PM rather than in AM w steroids * Will initiate weight-based moderate to severe stress Novolog PLAN FOR INPATIENT GLYCEMIC CONTROL: * Hold outpatient oral diabetes medications * Basal insulin * NPH 10 units SQ x1 now * Bolus insulin * NovoLog per scale ACHS or Q6hrs while NPO * Goal Range: Low 110 mg/dL - High 140 mg/dL * Correction Factor: 25 mg/dL/unit * Nutritional / Prandial insulin per carb ratio of 1 unit per 9 grams CHO consumed
[2021-12-18] MEDS ORDERED: INSULIN HUMAN NPH SC ONE (18:00)
[2021-12-18] MEDS: traMADol HCL 50 MG TABLET PO PRN (20:43)
[2021-12-18] MEDS: CYANOCOBALAMIN (B-12) 500 MCG TABLET PO SCH (20:44)
[2021-12-18] MEDS: POTASSIUM CHLORIDE 10 MEQ TABCR PO SCH (20:44)
[2021-12-18] MEDS: ATORVASTATIN 40 MG TAB PO SCH (20:44)
[2021-12-18] MEDS: ceFAZolin 2000MG 2,000 MG/15 ML SYR IV SCH (20:44)
[2021-12-18] MEDS: DOCUSATE SODIUM/SENNA 50/8.6MG TAB PO SCH (20:44)
[2021-12-18] MEDS: OMEGA-3 (PURIFIED FISH OIL) 1 GM CAP PO SCH (20:45)
[2021-12-18] MEDS: CHOLECALCIFEROL 1,000 UNITS 25 MCG TAB PO SCH (20:45)
[2021-12-18] MEDS: ESCITALOPRAM OXALATE 20 MG TAB PO SCH (20:45)
[2021-12-18] MEDS ORDERED: INSULIN ASPART PER UNIT SC SCH (21:00)
[2021-12-18] MEDS ORDERED: NON-FORMULARY MEDICATION (Soy Isofla-Blk Cohosh-Mag Bark [Estroven] 155 mg Capsule) PO SCH (21:00)
[2021-12-19] MEDS: oxyCODONE HCL IR 5 MG TAB (IMMEDIATE RELEASE) PO PRN ×2 (01:36→05:36)
[2021-12-19] MEDS: SODIUM CHLORIDE 0.9% 1000ML 1,000 ML IV SCH (01:36)
[2021-12-19] MEDS ORDERED: INSULIN ASPART PER UNIT SC ONE (02:00)
[2021-12-19] MEDS: POLYETHYLENE (MIRALAX) 17 GM PACK PO SCH ×4 (05:36→23:29)
[2021-12-19] MEDS: ceFAZolin 2000MG 2,000 MG/15 ML SYR IV SCH (05:37)
[2021-12-19] MEDS: PANTOprazole 40 MG TAB PO SCH (07:42)
[2021-12-19] MEDS: FENOFIBRATE NANOCRYSTALLIZED 145 MG TABLET PO SCH (07:42)
[2021-12-19] MEDS: dexAMETHasone 6 MG in SYRINGE 0 ML IV SCH (07:42)
[2021-12-19] MEDS: ASPIRIN 81 MG ECTAB PO SCH (07:42)
[2021-12-19] MEDS: lisinopril 10 MG TAB PO SCH (07:43)
[2021-12-19] MEDS: CEROVITE ADV FORMULA TAB PO SCH (07:43)
[2021-12-19] MEDS: ALPRAZolam 0.5 MG TABLET PO SCH (08:10)
[2021-12-19] MEDS: INSULIN ASPART PER UNIT SC SCH ×4 (08:27→21:33)
[2021-12-19 08:52] LABS: Basophils # (auto) 0.01 K/uL (0-0.2); Basophils % (auto) 0.1 %; Eosinophils # (auto) 0.01 K/uL (0-0.50); Eosinophils % (auto) 0.1 %; Hematocrit (blood only) 30.2 % (34.1-44.9); Immature Granulocytes # (auto) 0.04 K/uL (0.00-0.02); Immature Granulocytes % (auto) 0.5 %; Lymphocytes # (auto) 1.23 K/uL (1.2-3.4); Lymphocytes % (auto) 14.8 %; Mean Corpuscular Hgb Conc 33.1 g/dL (32.0-36.0); Mean Corpuscular Volume 90.7 fL (80.0-100.0); Mean Platelet Volume 9.9 fL (9.4-12.3); Monocytes # (auto) 0.72 K/uL (0.24-0.82); Monocytes % (auto) 8.6 %; Neutrophils # (auto) 6.32 K/uL (1.4-6.5); Neutrophils % (auto) 75.9 %; Nucleated RBC # (auto) 0.02 K/uL (0-0); Nucleated RBC % (auto) 0.2 %; Platelet Count 223 K/uL (130-400); RDW Coefficient of Variation 14.1 % (11.5-14.5); Red Blood Count 3.33 M/uL (3.93-5.22); White Blood Count 8.33 K/ul (4.8-10.8)
[2021-12-19] MEDS ORDERED: INSULIN HUMAN NPH SC SCH (09:00)
[2021-12-19] MEDS ORDERED: GLIMEPIRIDE 2 MG TAB PO SCH (09:00)
[2021-12-19 09:21] LABS: Calcium 8.2 mg/dl (8.5-10.1); Creatinine Clr Calc Pharmacy 59.9 ml/min; Est GFR (African American) 74.2 ml/min; Potassium 3.5 mmol/L (3.5-5.1)
--- NOTE | 2021-12-19 10:21 | Pharmacy Report ---
Pharmacy Glycemic Short Note 2 - Date of Service December 19, 2021 - Glycemic Short BSG Results (Last 24 hours): 12/18/21 12/18/21 12/18/21 14:50 16:59 20:43 Glucose POC Glucose 127 H 182 H 188 H 12/19/21 12/19/21 12/19/21 01:58 08:03 08:26 Glucose 120 H POC Glucose 122 H 119 H OUTPATIENT ANTIDIABETIC REGIMEN: * Metformin 1000 mg PO BIDM * Glipizide ER 10 mg PO AM * Linagliptin 5 mg PO daily * HbA1c = 6.5% (12/04/21) ASSESSMENT: 12/19: * Akilah received a total of 16 units of insulin yesterday (10 units NPH + 6 units Novolog). BSGs last evening [id number] mg/dL. * Fasting BSG was 119 mg/dL this AM. Will continue with 10 units of NPH while patient is on IV dexamethasone. * No changes to Novolog today. 12/18: * 66 yo F with T2DM POD [address] Danielle - steroids overridden in OR and scheduled ongoing * Will utilize NPH as basal 2nd daily qAM dexamethasone w low initial dose as it's being admin in PM rather than in AM w steroids * Will initiate weight-based moderate to severe stress Novolog PLAN FOR INPATIENT GLYCEMIC CONTROL: * Hold outpatient oral diabetes medications * Basal insulin * NPH 10 units SC daily x 3 days (while on Dexamethasone 6 mg IV daily x 3 days) * Bolus insulin * NovoLog per scale ACHS or Q6hrs while NPO * Goal Range: Low 110 mg/dL - High 140 mg/dL * Correction Factor: 25 mg/dL/unit * Nutritional / Prandial insulin per carb ratio of 1 unit per 9 grams CHO consumed
[2021-12-19] MEDS: diphenhydrAMINE Capsule 25 MG CAP PO PRN ×2 (10:31→21:33)
--- NOTE | 2021-12-19 12:42 | Orthopedic Progress Note ---
Date of Service December 19, 2021 Assessment & Plan (1) Neurogenic claudication due to lumbar spinal stenosis: Plan: At this time we will continue physical therapy monitor PATRICE operatively discharge home in the next few days. Admission and Anticipated Discharge Date Admission Date: December 18, 2021 Subjective Back pain controlled leg symptoms improved Physical Exam Physical Exam: Patient is in the chair at the bedside. Discussed with the testing. Appears comfortable. Results & Data ([facility]) Vital Signs (Past 12 Hours) Vital Signs Temp Pulse Pulse Resp BP BP Pulse Ox 12/19/21 11:56 37.2 C 86 16 155/70 H 93 12/19/21 08:00 12/19/21 06:58 36.5 C 73 14 151/81 H 93 12/19/21 02:00 36.6 C 77 16 140/75 96 O2 Del Method 12/19/21 11:56 Room Air 12/19/21 08:00 Room Air 12/19/21 06:58 12/19/21 02:00 Room Air
[2021-12-19] MEDS: traMADol HCL 50 MG TABLET PO PRN ×2 (17:22→21:33)
[2021-12-19] MEDS: OMEGA-3 (PURIFIED FISH OIL) 1 GM CAP PO SCH (21:08)
[2021-12-19] MEDS: POTASSIUM CHLORIDE 10 MEQ TABCR PO SCH (21:08)
[2021-12-19] MEDS: CHOLECALCIFEROL 1,000 UNITS 25 MCG TAB PO SCH (21:08)
[2021-12-19] MEDS: DOCUSATE SODIUM/SENNA 50/8.6MG TAB PO SCH (21:08)
[2021-12-19] MEDS: ATORVASTATIN 40 MG TAB PO SCH (21:08)
[2021-12-19] MEDS: CYANOCOBALAMIN (B-12) 500 MCG TABLET PO SCH (21:09)
[2021-12-19] MEDS: ESCITALOPRAM OXALATE 20 MG TAB PO SCH (21:09)
--- NOTE | 2021-12-19 23:48 | Hospitalist Progress Note ---
Date of Service December 19, 2021 Assessment & Plan (1) Neurogenic claudication due to lumbar spinal stenosis: (2) Diabetes: (3) Dyslipidemia: (4) HTN (hypertension): Plan Ms. Akilah Thomas is a 66 year old who is a patient of Dr. Danielle's who underwent a scheduled L4-S1 decompression and fusion surgery today. We are involved for continued medical management. Neurogenic claudication due to lumbar spinal stenosis: s/p day #1 #1 lumbar decompression with bilateral medial facetectomies and foraminotomies L3-L4, L4-5 and L5-S1. #2 posterior spinal fusion L4-L5 L5-S1. #3 placement posterior instrumentation L4-L5 L5-S1. #4 interbody fusion L4-L5 L5-S1. #5 placement of Spira 13 x 26 mm cage at L4-L5 L5-S1 for #6 placement locally harvested morselized autograft in the posterior gutters. #7 placement of I factor model V toss interbody space and posterior lateral gutters performed by Dr. Danielle No postop complication Continue incentive spirometry Pain control as per Ortho Continue PT/OT eval Hemoglobin 10 today continue monitor hemoglobin Fall precaution Diabetes: Continue to hold PO insulin agents (Metformin, Glimepiride, and Trajerta). Glycemic management as per pharmacy Continue monitor blood sugar Dyslipidemia: Continue Lipitor and Fenofibrate HTN: BP stable Continue Lisinopril Continue monitor BP Thank you kindly for involving the [facility] Hospitalist team with this individual. Please feel free to contact us 10/12 through [employer] on-call hospitalist. Admission and Anticipated Discharge Date Admission Date: December 18, 2021 Subjective Patient was seen and examined for postop follow-up Sitting in chair with no acute distress eating her meal Patient said that she feels okay Denies any chest pain, palpitation, dizziness, shortness of breath. If Review of Systems Review of Systems: All systems reviewed & are unremarkable except as noted in Subjective Physical Exam Physical Exam: General- No acute distress Head- atraumatic Eyes- PERRL, EOMI, ENT- oropharynx clear Neck- supple, no JVD Lungs- clear to auscultation Heart- regular rhythm; no murmur Abdomen- normal bowel sounds, soft, nontender Extremities- no calf tenderness Neuro- alert, oriented x 3; PERRL, EOMI; no facial palsy; no dysarthria Skin- warm & dry Results & Data Results & Data ([facility]) Vital Signs (Past 12 Hours) Vital Signs Temp Pulse Resp BP BP Pulse Ox O2 Del Method 12/19/21 21:05 37.4 C 85 16 132/74 93 Room Air 12/19/21 15:14 36.8 C 67 14 152/78 H 95 12/19/21 11:56 37.2 C 86 16 155/70 H 93 Room Air
[2021-12-20] MEDS: traMADol HCL 50 MG TABLET PO PRN ×2 (04:42→21:29)
[2021-12-20] MEDS: POLYETHYLENE (MIRALAX) 17 GM PACK PO SCH ×4 (05:48→21:19)
[2021-12-20] MEDS: diphenhydrAMINE Capsule 25 MG CAP PO PRN (07:52)
[2021-12-20] MEDS: PANTOprazole 40 MG TAB PO SCH (08:00)
[2021-12-20] MEDS: lisinopril 10 MG TAB PO SCH (08:00)
[2021-12-20] MEDS: CEROVITE ADV FORMULA TAB PO SCH (08:00)
[2021-12-20] MEDS: FENOFIBRATE NANOCRYSTALLIZED 145 MG TABLET PO SCH (08:00)
[2021-12-20] MEDS: ASPIRIN 81 MG ECTAB PO SCH (08:00)
[2021-12-20] MEDS: dexAMETHasone 6 MG in SYRINGE 0 ML IV SCH (08:01)
[2021-12-20] MEDS: ALPRAZolam 0.5 MG TABLET PO SCH (08:02)
--- NOTE | 2021-12-20 08:08 | Hospitalist Progress Note ---
Date of Service December 20, 2021 Assessment & Plan (1) Neurogenic claudication due to lumbar spinal stenosis: (2) Diabetes: (3) Dyslipidemia: (4) HTN (hypertension): Plan Ms. Akilah Thomas is a 66 year old who is a patient of Dr. Danielle's who underwent a scheduled L4-S1 decompression and fusion surgery. We are involved for continued medical management. Neurogenic claudication due to lumbar spinal stenosis: s/p day 2 lumbar decompression with bilateral medial facetectomies and foraminotomies L3-L4, L4-5 and L5-S1. #2 posterior spinal fusion L4-L5 L5-S1. #3 placement posterior instrumentation L4-L5 L5-S1. #4 interbody fusion L4-L5 L5-S1. #5 placement of Spira 13 x 26 mm cage at L4-L5 L5-S1 for #6 placement locally harvested morselized autograft in the posterior gutters. #7 placement of I factor model V toss interbody space and posterior lateral gutters performed by Dr. Danielle No postop complication Continue incentive spirometry Pain control as per Ortho Continue PT/OT eval Hemoglobin 10 - stable continue monitor hemoglobin Fall precaution Diabetes: Continue to hold PO agents (Metformin, Glimepiride, and Trajerta). Glycemic management as per pharmacy Continue monitor blood sugar Dyslipidemia: Continue Lipitor and Fenofibrate HTN: BP stable Continue Lisinopril Continue monitor BP Thank you kindly for involving the [facility] Hospitalist team with this individual. Please feel free to contact us 10/12 through [facility] on-call hospitalist. Admission and Anticipated Discharge Date Admission Date: December 18, 2021 Subjective Patient was seen and examined for postop follow-up- lumbar surgery Sitting up in bed, eating, no acute distress Patient reports feeling well Denies any chest pain, palpitation, dizziness, shortness of breath. She is ambulating with a walker, passing gas, no BM yet Review of Systems Review of Systems: All systems reviewed & are unremarkable except as noted in Subjective Physical Exam Physical Exam: General- No acute distress Head- atraumatic Eyes- PERRL, EOMI, ENT- oropharynx clear Neck- supple, no JVD Lungs- clear to auscultation Heart- regular rhythm; no murmur Abdomen- normal bowel sounds, soft, nontender Back - surg. dressings applied Extremities- no calf tenderness, moves extremities Neuro- alert, oriented x 3; PERRL, EOMI; no facial palsy; no dysarthria, moves extremities Skin- warm & dry Results & Data Results & Data ([facility]) Vital Signs (Past 12 Hours) Vital Signs Temp Pulse Resp BP Pulse Ox O2 Del Method 12/20/21 06:58 37.0 C 71 17 147/75 H 93 Room Air 12/19/21 21:05 37.4 C 85 16 132/74 93 Room Air Laboratory Results 12/19/21 12/19/21 12/19/21 Range/Units 21:10 17:18 11:55 WBC (4.8-10.8) K/ul RBC (3.93-5.22) M/uL Hgb (12.0-16.0) g/dl Hct (34.1-44.9) % MCV (80.0-100.0) fL MCH (25.0-34.0) pg MCHC (32.0-36.0) g/dL RDW Std Deviation (36.4-46.3) fL RDW Coeff of Reta (11.5-14.5) % Plt Count (130-400) K/uL MPV (9.4-12.3) fL Immature Gran % (Auto) % Neut % (Auto) % Lymph % (Auto) % Villalba % (Auto) % Eos % (Auto) % Baso % (Auto) % Neut # (Auto) (1.4-6.5) K/uL Lymph # (Auto) (1.2-3.4) K/uL Villalba # (Auto) (0.24-0.82) K/uL Eos # (Auto) (0-0.50) K/uL Baso # (Auto) (0-0.2) K/uL Immature Gran # (Auto) (0.00-0.02) K/uL Absolute Nucleated RBC (0-0) K/uL Nucleated RBC % (auto) % Sodium (136-145) mmol/L Potassium (3.5-5.1) mmol/L Chloride (98-107) mmol/L Carbon Dioxide (21-32) mmol/L Anion Gap (3-11) BUN (6-23) mg/dl Creatinine (0.6-1.2) mg/dl Est Cr Clr Drug Dosing ml/min Est GFR ( Amer) ml/min Est GFR (Non-Af Amer) ml/min BUN/Creatinine Ratio (10-20) Glucose (70-99(Fasting)) mg/dl POC Glucose 161 H 192 H 208 H (70-99) mg/dl Calcium (8.5-10.1) mg/dl 12/19/21 12/19/21 Range/Units 08:26 08:26 WBC 8.33 (4.8-10.8) K/ul RBC 3.33 L (3.93-5.22) M/uL Hgb 10.0 L (12.0-16.0) g/dl Hct 30.2 L (34.1-44.9) % MCV 90.7 (80.0-100.0) fL MCH 30.0 (25.0-34.0) pg MCHC 33.1 (32.0-36.0) g/dL RDW Std Deviation 46.0 (36.4-46.3) fL RDW Coeff of Reta 14.1 (11.5-14.5) % Plt Count 223 (130-400) K/uL MPV 9.9 (9.4-12.3) fL Immature Gran % (Auto) 0.5 % Neut % (Auto) 75.9 % Lymph % (Auto) 14.8 % Villalba % (Auto) 8.6 % Eos % (Auto) 0.1 % Baso % (Auto) 0.1 % Neut # (Auto) 6.32 (1.4-6.5) K/uL Lymph # (Auto) 1.23 (1.2-3.4) K/uL Villalba # (Auto) 0.72 (0.24-0.82) K/uL Eos # (Auto) 0.01 (0-0.50) K/uL Baso # (Auto) 0.01 (0-0.2) K/uL Immature Gran # (Auto) 0.04 H (0.00-0.02) K/uL Absolute Nucleated RBC 0.02 H (0-0) K/uL Nucleated RBC % (auto) 0.2 % Sodium 135 L (136-145) mmol/L Potassium 3.5 (3.5-5.1) mmol/L Chloride 100 (98-107) mmol/L Carbon Dioxide 27 (21-32) mmol/L Anion Gap 8 (3-11) BUN 13 (6-23) mg/dl Creatinine 0.93 (0.6-1.2) mg/dl Est Cr Clr Drug Dosing 59.9 ml/min Est GFR ( Amer) 74.2 ml/min Est GFR (Non-Af Amer) 64.0 ml/min BUN/Creatinine Ratio 14.0 (10-20) Glucose 120 H (70-99(Fasting)) mg/dl POC Glucose (70-99) mg/dl Calcium 8.2 L (8.5-10.1) mg/dl Medications Administered Current Inpatient Medications Acetaminophen (Acetaminophen 500 Mg Tab) 1,000 mg PO Q8H PRN PRN Reason: MILD Pain Scale 1,2,3 & Pre PT Stop: 01/17/22 15:53 Al Hydrox/Mg Hydrox/Simethicone (Aluminum/Magnesium Susp 30 Ml Udc) 30 ml PO Q6H PRN PRN Reason: Dyspepsia Stop: 01/17/22 15:53 Alprazolam (Alprazolam 0.5 Mg Tablet) [facility] [place] Stop: 01/18/22 08:59 Last Admin: 12/20/21 08:02 Dose: 1 mg Aspirin (Aspirin 81 Mg Ectab) 81 [facility] [place] Stop: 01/18/22 08:59 Last Admin: 12/20/21 08:00 Dose: 81 mg Atorvastatin Calcium (Atorvastatin 40 Mg Tab) 40 mg PO [facility] Stop: 01/17/22 20:59 Last Admin: 12/19/21 21:08 Dose: 40 mg Bisacodyl (Bisacodyl 10 Mg Supp) 10 mg FL DAILY PRN PRN Reason: Constipation Stop: 01/17/22 15:53 Cyanocobalamin (Cyanocobalamin (B-12) 500 Mcg Tablet) 500 mcg PO [facility] Stop: 01/17/22 20:59 Last Admin: 12/19/21 21:09 Dose: 500 mcg Dextrose (Dextrose 50% 50 Ml Syringe) 25 - 50 ml IV UD PRN; Protocol PRN Reason: Hypoglycemia Protocol Stop: 01/17/22 17:19 Diphenhydramine HCl (Diphenhydramine Capsule 25 Mg Cap) 25 mg PO Q6H PRN PRN Reason: Allergic Rhinitis/Insomnia Stop: 01/17/22 15:53 Last Admin: 12/20/21 07:52 Dose: 25 mg Escitalopram Oxalate (Escitalopram Oxalate 20 Mg Tab) 20 mg PO HS [facility] Stop: 01/17/22 20:59 Last Admin: 12/19/21 21:09 Dose: 20 mg Famotidine (Famotidine 20 Mg Tab) 20 mg PO Q12H PRN PRN Reason: Dyspepsia Stop: 01/17/22 15:53 Fenofibrate (Fenofibrate Nanocrystallized 145 Mg Tablet) 145 mg PO QAM [facility] Stop: 01/18/22 08:59 Last Admin: 12/20/21 08:00 Dose: 145 mg Fish Oil (Beulah-3 (Purified Fish Oil) 1 Gm Cap) 1 gm PO HS [facility] Stop: 01/17/22 20:59 Last Admin: 12/19/21 21:08 Dose: 1 gm Gabapentin (Gabapentin 300 Mg Cap) 300 mg PO PRN PRN PRN Reason: Pain Stop: 01/17/22 16:44 Glucagon (Glucagon For Inj 1 Mg Vial) 1 mg SQ UD PRN; Protocol PRN Reason: Hypoglycemia Protocol Stop: 01/17/22 17:19 Glucose (Glucose 40% Gel 15 Gm Tube) 15 - 30 gm PO UD PRN; Protocol PRN Reason: Hypoglycemia Protocol Stop: 01/17/22 17:19 Glucose (Glucose 10 Tab/Tube) 4 - 8 tab PO UD PRN; Protocol PRN Reason: Hypoglycemia Treatment Stop: 01/17/22 17:19 Hydromorphone HCl (Hydromorphone Inj 0.5 Mg/0.5 Ml Syr) 0.5 mg IV Q3H PRN PRN Reason: MODERATE Pain (Scale 4,5,6) & Stop: 01/01/22 15:53 Hydromorphone HCl (Hydromorphone Inj 1 Mg/Ml Syringe) 1 mg IV Q3H PRN PRN Reason: SEVERE Pain (Scale 7,8,9,10) Stop: 01/01/22 15:53 Hydroxyzine HCl (Hydroxyzine Hcl 25 Mg Tab) 25 mg PO Q8H PRN PRN Reason: Anxiety Stop: 01/17/22 15:53 Promethazine HCl 12.5 mg/ (Sodium Chloride) 50.5 mls @ 202 mls/hr IV Q6H PRN PRN Reason: Nausea &/or Vomiting Stop: 01/17/22 15:53 Lorazepam 0.5 mg/ Syringe 0.5 mls @ 2 mls/min IV Q8H PRN PRN Reason: Sedation/Anxiety Stop: 01/17/22 15:53 Dexamethasone 6 mg/ Syringe 1.5 mls @ 1 mls/min IV DAILY MAC Stop: 12/21/21 09:02 Last Admin: 12/20/21 08:01 Dose: 1 mls/min Insulin Aspart (Insulin Aspart Per Unit) 0 units SC ACHS [facility]; Protocol Stop: 01/17/22 17:14 Last Admin: 12/19/21 21:33 Dose: 1 units Insulin Human NPH (Insulin Human Nph) 20 units SC DAILY [facility]; Protocol Stop: 12/21/21 09:01 Lisinopril (Lisinopril 10 Mg Tab) 10 [facility] [place] Stop: 01/18/22 08:59 Last Admin: 12/20/21 08:00 Dose: 10 mg Lorazepam (Lorazepam 0.5 Mg Tab) 0.5 mg PO Q8H PRN PRN Reason: Sedation/Anxiety Stop: 01/17/22 15:53 Magnesium Hydroxide (Magnesium Hydroxide Susp 30 Ml Udc) 30 ml PO Q24H PRN PRN Reason: Constipation Stop: 01/17/22 15:53 Metoclopramide HCl (Metoclopramide Hcl Inj 5 Mg/Ml 2 Ml Vial) 10 mg IV Q6H PRN PRN Reason: Nausea &/or Vomiting Stop: 01/17/22 15:53 Miscellaneous (Carbohydrates For Hypoglycemia ) 15 - 30 gm PO UD PRN PRN Reason: Hypoglycemia Protocol Stop: 01/17/22 17:19 Miscellaneous Information (Pharmacy Glycemic Mgmt Consult) 1 each N/A UD PRN PRN Reason: Consult Stop: 01/17/22 15:53 Multivitamins/Minerals (Cerovite Adv Formula Tab) 1 tab [facility] [place]; Protocol Stop: 01/18/22 08:59 Last Admin: 12/20/21 08:00 Dose: 1 tab Naloxone HCl (Naloxone Hcl 0.4 Mg/1 Ml Vial/Carp) 0.1 mg IV Q5M PRN PRN Reason: Oversedation/Resp depression Stop: 01/17/22 15:53 Ondansetron HCl (Ondansetron Inj 2 Mg/Ml 2 Ml Vial) 4 mg IV Q6H PRN PRN Reason: Nausea &/or Vomiting Stop: 01/17/22 15:53 Ondansetron HCl (Ondansetron 4 Mg Od Tab) 4 mg PO Q6H PRN PRN Reason: Nausea Stop: 01/17/22 15:53 Oxycodone HCl (Oxycodone Hcl Ir 5 Mg Tab (Immediate Release)) 5 - 10 mg PO Q4H PRN PRN Reason: Pain & Pre PT Stop: 01/01/22 15:53 Last Admin: 12/19/21 05:36 Dose: 10 mg Pantoprazole Sodium (Pantoprazole 40 Mg Tab) 40 mg PO [facility]; Protocol Stop: 01/18/22 08:59 Last Admin: 12/20/21 08:00 Dose: 40 mg Polyethylene Glycol (Polyethylene (Miralax) 17 Gm Pack) 17 gm PO Q6 [facility] Stop: 01/18/22 05:59 Last Admin: 12/20/21 05:48 Dose: 17 gm Potassium Chloride (Potassium Chloride 10 Meq Tabcr) 10 meq PO [facility] Stop: 01/17/22 20:59 Last Admin: 12/19/21 21:08 Dose: 10 meq Senna/Docusate Sodium (Docusate Sodium/Senna 50/8.6mg Tab) 2 tab PO [facility] Stop: 01/17/22 20:59 Last Admin: 12/19/21 21:08 Dose: 2 tab Sodium Biphosphate/Sodium Phosphate (Sod Phosphate/Sod Biphosphate Enema 132 Ml Btl) 132 ml FL ONE PRN PRN Reason: Constipation Stop: 01/17/22 15:53 Tramadol HCl (Tramadol Hcl 50 Mg Tablet) 50 - 100 mg PO Q4H PRN PRN Reason: Moderate-Severe pain & Pre PT Stop: 01/17/22 15:53 Last Admin: 12/20/21 04:42 Dose: 100 mg Vitamin D (Cholecalciferol 1,000 Units 25 Mcg Tab) 1,000 units PO [facility] Stop: 01/17/22 20:59 Last Admin: 12/19/21 21:08 Dose: 1,000 units
[2021-12-20] MEDS: INSULIN ASPART PER UNIT SC SCH ×4 (08:45→21:28)
--- NOTE | 2021-12-20 08:45 | Pharmacy Report ---
Pharmacy Glycemic Short Note 2 - Date of Service December 20, 2021 - Glycemic Short BSG Results (Last 24 hours): 12/19/21 12/19/21 12/19/21 08:26 11:55 17:18 Glucose 120 H POC Glucose 208 H 192 H 12/19/21 12/20/21 21:10 08:06 Glucose POC Glucose 161 H 144 H OUTPATIENT ANTIDIABETIC REGIMEN: * Metformin 1000 mg PO BIDM * Glipizide ER 10 mg PO AM * Linagliptin 5 mg PO daily * HbA1c = 6.5% (12/04/21) ASSESSMENT: 12/20: * Patient received a total of 37 units of insulin yesterday (10 units NPH + 27 units Novolog). BSGs were: [phone] mg/dL. * Given postprandial hyperglycemia yesterday, will tighten both carb ratio and correction factor today. * Fasting BSGs slightly above goal at 144 mg/dL this AM. * Patient remains on IV dexamethasone, day #2/3, but will increase NPH dose today to achieve more balanced regimen (50% basal/50% bolus). 12/19: * Akilah received a total of 16 units of insulin yesterday (10 units NPH + 6 units Novolog). BSGs last evening [id number] mg/dL. * Fasting BSG was 119 mg/dL this AM. Will continue with 10 units of NPH while patient is on IV dexamethasone. * No changes to Novolog today. 12/18: * 66 yo F with T2DM POD [address] Danielle - steroids overridden in OR and scheduled ongoing * Will utilize NPH as basal 2nd daily qAM dexamethasone w low initial dose as it's being admin in PM rather than in AM w steroids * Will initiate weight-based moderate to severe stress Novolog PLAN FOR INPATIENT GLYCEMIC CONTROL: * Hold outpatient oral diabetes medications * Basal insulin * NPH 20 units SC daily (to be given with Dexamethasone - hold if Dexamethasone held/discontinued) * Bolus insulin * NovoLog per scale ACHS or Q6hrs while NPO * Goal Range: Low 110 mg/dL - High 140 mg/dL * Correction Factor: 20 mg/dL/unit * Nutritional / Prandial insulin per carb ratio of 1 unit per 7 grams CHO consumed
[2021-12-20] MEDS: INSULIN HUMAN NPH SC SCH (08:46)
[2021-12-20 09:02] LABS: Hematocrit (blood only) 31.7 % (34.1-44.9); Hemoglobin 10.3 g/dl (12.0-16.0); Mean Corpuscular Hemoglobin 30.4 pg (25.0-34.0); Mean Corpuscular Hgb Conc 32.5 g/dL (32.0-36.0); Mean Corpuscular Volume 93.5 fL (80.0-100.0); Mean Platelet Volume 9.8 fL (9.4-12.3); Platelet Count 240 K/uL (130-400); RDW Coefficient of Variation 14.6 % (11.5-14.5); RDW Standard Deviation 49.7 fL (36.4-46.3); Red Blood Count 3.39 M/uL (3.93-5.22); White Blood Count 8.83 K/ul (4.8-10.8)
--- NOTE | 2021-12-20 09:37 | Orthopedic Progress Note ---
Date of Service December 20, 2021 Assessment & Plan (1) Neurogenic claudication due to lumbar spinal stenosis: Plan: This we will continue physical therapy monitor PATRICE operatively discharge home tomorrow. Admission and Anticipated Discharge Date Admission Date: December 18, 2021 Subjective Patient's back pain is controlled leg pain improved Physical Exam Physical Exam: Patient is in the chair at the bedside. She is constricted testing. Appears comfortable. Results & Data ([facility]) Vital Signs (Past 12 Hours) Vital Signs Temp Pulse Resp BP Pulse Ox O2 Del Method 12/20/21 06:58 37.0 C 71 17 147/75 H 93 Room Air
[2021-12-20] MEDS: ATORVASTATIN 40 MG TAB PO SCH (21:18)
[2021-12-20] MEDS: CYANOCOBALAMIN (B-12) 500 MCG TABLET PO SCH (21:18)
[2021-12-20] MEDS: CHOLECALCIFEROL 1,000 UNITS 25 MCG TAB PO SCH (21:18)
[2021-12-20] MEDS: DOCUSATE SODIUM/SENNA 50/8.6MG TAB PO SCH (21:18)
[2021-12-20] MEDS: OMEGA-3 (PURIFIED FISH OIL) 1 GM CAP PO SCH (21:19)
[2021-12-20] MEDS: ESCITALOPRAM OXALATE 20 MG TAB PO SCH (21:19)
[2021-12-20] MEDS: POTASSIUM CHLORIDE 10 MEQ TABCR PO SCH (21:19)
[2021-12-21] MEDS: POLYETHYLENE (MIRALAX) 17 GM PACK PO SCH (04:49)
[2021-12-21 07:13] LABS: Hematocrit (blood only) 28.9 % (34.1-44.9); Hemoglobin 9.4 g/dl (12.0-16.0); Mean Corpuscular Hemoglobin 29.9 pg (25.0-34.0); Mean Corpuscular Hgb Conc 32.5 g/dL (32.0-36.0); Mean Platelet Volume 10.2 fL (9.4-12.3); Platelet Count 239 K/uL (130-400); RDW Coefficient of Variation 14.6 % (11.5-14.5); RDW Standard Deviation 48.9 fL (36.4-46.3); Red Blood Count 3.14 M/uL (3.93-5.22); White Blood Count 8.49 K/ul (4.8-10.8)
[2021-12-21 07:39] LABS: BUN Creatinine Ratio 19.4 (10-20); Calcium 8.7 mg/dl (8.5-10.1); Creatinine Clr Calc Pharmacy 56.8 ml/min; Est GFR (African American) 69.7 ml/min; Est GFR (Non-African American) 60.1 ml/min; Potassium 3.8 mmol/L (3.5-5.1)
[2021-12-21] MEDS: dexAMETHasone 6 MG in SYRINGE 0 ML IV SCH (08:13)
[2021-12-21] MEDS: lisinopril 10 MG TAB PO SCH (08:13)
[2021-12-21] MEDS: FENOFIBRATE NANOCRYSTALLIZED 145 MG TABLET PO SCH (08:13)
[2021-12-21] MEDS: ASPIRIN 81 MG ECTAB PO SCH (08:13)
[2021-12-21] MEDS: CEROVITE ADV FORMULA TAB PO SCH (08:13)
[2021-12-21] MEDS: PANTOprazole 40 MG TAB PO SCH (08:14)
[2021-12-21] MEDS: ALPRAZolam 0.5 MG TABLET PO SCH (08:15)
--- NOTE | 2021-12-21 08:29 | Discharge Summary ---
Date of Service December 21, 2021 Admission HPI Per Admitting Provider This is a 66-year-old female who presents with chronic persistent back and leg pain. After an extensive course of nonoperative care she is here for surgical invention. Principal Diagnosis Lumbar spinal stenosis with neurogenic claudication Discharge Data Allergies Allergy/AdvReac Type Severity Reaction Status Date / Time atorvastatin Allergy Unknown Swelling Verified 12/18/21 07:47 of Lip/Tongue/Throat sertraline Allergy Unknown Swelling Verified 12/18/21 07:47 of Lip/Tongue/Throat Sulfa (Sulfonamide Allergy Unknown Swelling Verified 12/18/21 07:47 Antibiotics) of Lip/Tongue/Throat Consultations 12/18/21 15:54 Consult Hospitalist Routine Procedures Performed Operation Date: 12/18/21 09:05 Actual Procedures p L4-S1 Decompression and Fusion, Spinal Cord Monitoring(Not Applicable) - Jose Eduardo Danielle DO Ordered Studies 12/18/21 09:05 FL lumbar spine 2-3V Routine Hospital Course (1) Neurogenic claudication due to lumbar spinal stenosis: Patient 1 lumbar decompression fusion tolerated this well was taken to orthopedic for postoperative. Postop day 1 she was up and ambulating progressed to postop day #2 on postop day #3 PATRICE drain decreased probably. Excellent strength testing. Separately discharged home. Discharge orders instructions from the chart for further review. Total Time Total Time Spent Total Time Spent (In Minutes): 20 minutes Discharge Plan Discharge Items Patient Disposition: Home - Self-Care Reason For Visit: Spinal Stenosis Lumbar Region with Radiculopathy Discharge Diagnosis: Lumbar spinal stenosis with neurogenic claudication Activity: As commented below Non-emergency contact: Primary Care Provider Call non-emergency contact if: you have any medication questions Follow-up/Referrals: Jessica Hollingsworth MD [Primary Care Provider] - Diet: Regular Addtl Attending Provider Instructions: ACTIVITY RECOMMENDATIONS: SELF CARE INSTRUCTIONS AFTER THORACIC/LUMBAR FUSIONS 1. You may walk to your tolerance. It is good exercise for your legs and back. Expect some back and intermittent leg aches and pains. 2. You may perform "counter-top" level activities (make a sandwich, tonya with a project, etc.). 3. No bending or lifting of more than 10 pounds or back twisting of any nature (roll like a log when turning in bed). 4. You may ride in a car for 20-30 minutes at a time. No driving until after your first visit with your doctor. 5. Frequent changes of position and restricting sitting to 30 minutes at a time will help limit the amount of back spasms and stiffness you may experience. 6. You may discontinue the use of ambulatory aids (cane, crutches, etc.) once your strength and confidence allow. 7. You may wind field manager the shower and let water strike your incision when you arrive home at least once daily. Do not take a tub bath, sit in a hot tub or go into a swimming pool until after your first recheck in the office. SPECIAL CARE INSTRUCTIONS: VERY IMPORTANT TO READ AND REVIEW A. Your surgical incision has been closed with a cosmetic suture under the skin that will dissolve in about 6 weeks. In 14 days, you can use a pair of clean scissors and cut the suture that is left outside of the skin at the ends of your incision. 1. The small skin tapes can be removed 7 days after surgery if they have not fallen off by that point. 2. You may keep the wound open to air as much as possible to promote healing after post-op day number 5 unless told otherwise by your doctor. 3. If you think the wound looks like it is becoming infected (redness or worsening drainage) and/or you are experiencing fever, chill or worsening back pain and muscle spasms, contact the office so that we may evaluate you as soon as possible. B. Complications are uncommon, but please contact us if you have any signs or symptoms of: 1. wound infection (fever higher than 102.5 degrees F, redness, separation of wound, drainage, or increasing pain from the incision) 2. blood clots in legs (pain, swelling, redness and warmth in legs) 3. urinary tract infection (fever higher than 102.5 degrees F, burning upon urination or increased frequency of urination) 4. nerve problems (inability to walk on your toes or heels, numbness, loss of bowel or bladder control) 5. any other symptoms that concern you C. Please call the office at if you have any concerns or questions about your operation or recovery. D. No smoking! Smoking drastically decreases the chance of a solid fusion. E. Do not take any anti-inflammatory medications (Indocin, Advil, Motrin, Aspirin, Naprosyn, etc.) as these may inhibit the chance of a solid fusion. Tylenol is okay to take for pain. MANAGING PAIN AFTER SPINAL SURGERY 1. Narcotic medication is intended for short-term use and will be provided for surgical pain. Surgical pain usually lasts for a period of 4-6 weeks. Narcotic medication includes Percocet, Vicodin, Darvocet, Tylenol #3 or Lortab. 2. Longer-term pain is more appropriately treated with non-narcotic medication such as Tylenol ES. 3. Muscle spasm is not appropriately treated with narcotics. Muscle relaxers such as Soma, Flexeril or Skelaxin can be used along with Tylenol ES. 4. Remember that we all live with some "aches and pains". This is not unusual or uncommon after an injury or as we get older. a. Back pain is expected and may include muscle spasms for 4 to 6 weeks after surgery. The pain should gradually improve. If the pain worsens for no apparent reason, please contact the office. b. Intermittent leg pain may also be experienced and should not be concerned about unless it worsens for no apparent reason. If so, please contact the office. 5. We will provide appropriate medication within the normal guidelines of their prescribed use. We will also be very cautious and aware of potential abuse and extended duration of patients' medication needs. a. Pain medications are for your comfort and to assist with sleep and rest so that the tissue can heal. They are not provided in order to return to normal activity and should not be used through the day. To do so or worsening pain at night can result from ongoing tissue damage and development of tolerance to the prescribed medicine. 6. Please allow 2-3 days to process refills. Prescriptions will not be mailed but must be picked up at the office. FOLLOW UP VISIT: Keep your scheduled follow-up appointment. Any questions, please call the office at . Pending Studies at Discharge: No Stand-Alone Forms: [facility], Smoking Cessation Medications and CO Order Prescriptions: New tramadol 50 mg tablet 50 mg PO Q6H PRN (Reason: pain, moderate) Qty: 30 0RF oxycodone 5 mg tablet 5 mg PO Q6H PRN (Reason: pain, severe) Qty: 30 0RF Continued atorvastatin 40 mg Tablet 40 mg PO HS alprazolam 1 mg Tablet 1 mg PO QAM potassium chloride 10 mEq Tablet Extended Release 10 meq PO HS aspirin 81 mg Tablet,Delayed Release (Dr/Ec) 81 mg PO QAM lisinopril 10 mg Tablet 10 mg PO QAM escitalopram oxalate 20 mg Tablet 20 mg PO HS fenofibrate nanocrystallized 145 mg Tablet 145 mg PO QAM omeprazole 20 mg Tablet,Delayed Release (Dr/Ec) 20 mg PO QAM omega 5-[id number]-zpx-fish oil [Fish Oil] 1,000 mg (120 mg-180 mg) Capsule 1 cap PO HS Tradjenta 5 mg Tablet 5 mg PO HS Estroven 155 mg Capsule 1 cap PO HS cyanocobalamin (vitamin B-12) [Vitamin B-12] 500 mcg Tablet 500 mcg PO HS metformin 1,000 mg Tablet 1,000 mg PO BID gabapentin 300 mg Tablet 300 mg PO UD Rx Instructions: Take 1 tablet at HS, may take TID as needed. cholecalciferol (vitamin D3) 25 mcg (1,000 unit) Tablet 25 mcg PO HS Centrum Silver Women 8 mg iron-400 mcg-300 mcg Tablet 1 tab PO QAM glipizide 10 mg tablet extended release 24hr 10 mg PO DAILYBB Discharge Orders: Discharge Order (Routine); Ordered 12/21/21 Ordered By: Jose Eduardo Danielle Admission Data Admit Date/Time: 12/18/21 14:29 Attending Provider: Jose Eduardo Danielle Admit Provider: Jose Eduardo Danielle Primary Care Provider: Jessica Hollingsworth Other Providers: Blaire Potts ; Dominic Martinez
[2021-12-21] MEDS: INSULIN ASPART PER UNIT SC SCH (08:41)
[2021-12-21] MEDS: INSULIN HUMAN NPH SC SCH (08:42)
[2021-12-21] MEDS: traMADol HCL 50 MG TABLET PO PRN (10:29)
== END 2021-12-21 11:02 | disposition home or self-care (01) | DRG 455 ==
LOC: ASU 07:13 → 3E 14:29